=== PATIENT | male | born 1990 | race Caucasian/White ===

== ENCOUNTER 2021-10-29 22:35 | Emergency (ER) | payer SELFPAY ==
[2021-10-29 22:35] VITALS: PULSE 75; RESP 20; TEMP 36.8; BMI 36.9
[2021-10-29 22:46] VITALS: BP 123/77; PULSE 85; RESP 21; O2SAT 98
--- NOTE | 2021-10-29 23:07 | EKG12_ITS ---
Test Reason : DYSRHYTHMIA Blood Pressure : / mmHG Vent. Rate : 070 BPM Atrial Rate : 070 BPM P-R Int : 144 ms QRS Dur : 108 ms QT Int : 400 ms P-R-T Axes : 032 -19 009 degrees QTc Int : 432 ms Sinus rhythm with marked sinus arrhythmia Voltage criteria for left ventricular hypertrophy Abnormal ECG Confirmed by JARET BRO, SUKHDEEP ([id number]), offline editor KORINA SWIFT ([id number]) on 11/01/2021 10:46:12 A M Referred By: AMINTA Confirmed By:CHRIS RAYGOZA MD
[2021-10-29 23:16] LABS: Absolute Lymphocyte Count 0.99 X10^3/uL (0.83-4.51); Absolute Neutrophil Count 4.5 X10^3/uL (2.0-7.7); Basophil# 0.01 X10^3/uL; Basophil% 0.2 % (0-1); Eosinophil# 0.08 X10^3/uL; Eosinophils% 1.3 % (0-5); Hematocrit 39.5 % (40-54); Hemoglobin 13.2 g/dL (13.0-16.5); Lymphocyte # 0.99 X10^3/ul (0.83-4.51); Lymphocyte % 16.3 % (19-41); Mean Corp Hgb Conc 33.4 g/dL (32-36); Mean Corpuscular Hgb 28.4 pg (27.0-32.0); Mean Corpuscular Volume 84.9 fL (80-94); Mean Platelet Vol. 9.6 fl (6.2-12.0); Monocyte# 0.45 X10^3/uL; Monocyte% 7.4 % (0-10); NRBC Flagged by Analyzer 0 % (0-5); Neutrophil % 74.3 % (47-70); Platelet Count 264 K/mm3 (150-450); RBC Distribution Width CV 12.6 % (11.6-14.6); RBC Distribution Width SD 38.7 fl (35.1-43.9); Red Blood Count 4.65 M/mm3 (4.6-6.2); White Blood Count 6.1 K/mm3 (4.4-11.0)
[2021-10-29 23:45] VITALS: BP 124/88; BP 127/84; BP 132/92; PULSE 104; PULSE 88; PULSE 91
[2021-10-29 23:50] LABS: Anion Gap 5 (5-15); BUN 13 mg/dL (7-18); BUN/Creat Ratio 12.3 RATIO (10-20); Calcium,Total 8.7 mg/dL (8.5-10.1); Chloride 105 mmol/L (98-107); Creatinine, Serum 1.06 mg/dL (0.70-1.30); EST Glomerular Filtration Rate 87 mL/min (>60); Est Glom Filt Rate - Afr Amer 105 mL/min (>60); Estimated Creatinine Clearance 82.01 ml/min; Glucose 137 mg/dL (74-106); Magnesium 2.6 mg/dL (1.6-2.6); Potassium 3.5 mmol/L (3.5-5.1); Sodium Level 138 mmol/L (136-145); Troponin-I HS 5 pg/mL (3.0-78.0)
--- NOTE | 2021-10-29 23:51 | EX.ED.DYSGE1 ---
HPI History of Present Illness Chief Complaint: Syncope Narrative Narrative: Patient is a 31-year-old male who reports no significant medical or surgical history. He states he was at work this evening standing up for a meeting when he felt lightheaded dizzy became nauseated and then had a brief event of passing out. Patient states he awoke almost as soon as he hit the ground and he denies any chest pain or palpitations prior to the event. He states he feels normal at this time but with the passing out event occurring at work was sent to the hospital for evaluation [facility] Medical History no medical history no medical history Home Medications NK 10/29/21 [History Last Taken Unknown] Allergy/AdvReac Type Severity Reaction Status Date / Time Penicillins [PCN] AdvReac PT UNSURE Verified 10/29/21 22:39 OF REACTION Surgical History no surgical history Social History Smoking Status: Current every day smoker tobacco type: smokeless tobacco ROS ROS ED Constitutional Constitutional ED: Denies chills or fever(s) ENT ENT ED: Denies sore throat Cardiovascular Cardiovascular: Reports other Details: Positive syncope ; Denies chest pain, palpitations or racing heartbeat Respiratory/Chest Respiratory/Chest: Denies cough or dyspnea Gastrointestinal Gastrointestinal: Denies abdominal pain, diarrhea, nausea or vomiting Genitourinary Genitourinary ED: Denies dysuria Musculoskeletal Musculoskeletal: Denies myalgias Integumentary Denies rash Neurologic Neurologic: Denies headache(s) Hematologic/Lymphatic Hematologic/Lymphatic: Denies easy bleeding or easy bruising EXAM Physical Exam Const Vital Signs: 10/29/21 22:35 10/29/21 22:41 10/29/21 22:46 Temperature 98.2 F Temperature Source Oral Pulse Rate 75 85 Pulse Rate [Lying] Pulse Rate [Sitting] Pulse Rate [Standing] Respiratory Rate 20 H 21 H Respiratory Effort Normal Respiratory Pattern Normal Blood Pressure 123/77 H Blood Pressure [Lying] Blood Pressure [Sitting] Blood Pressure [Standing] Blood Pressure Mean 92 Blood Pressure Mean [Lying] Blood Pressure Mean [Sitting] Blood Pressure Mean [Standing] Pulse Ox 98 Oxygen Delivery Method Room Air 10/29/21 23:45 Temperature Temperature Source Pulse Rate Pulse Rate [Lying] 88 Pulse Rate [Sitting] 91 Pulse Rate [Standing] 104 H Respiratory Rate Respiratory Effort Respiratory Pattern Blood Pressure Blood Pressure [Lying] 127/84 H Blood Pressure [Sitting] 124/88 H Blood Pressure [Standing] 132/92 H Blood Pressure Mean Blood Pressure Mean [Lying] 98 Blood Pressure Mean [Sitting] 100 Blood Pressure Mean [Standing] 105 Pulse Ox Oxygen Delivery Method Positive well nourished and well developed General Appearance ED: well developed HEENT Reports moist mucous membranes Eyes PERRL and EOMs intact bilaterally General Eye ED: Negative for pale conjunctiva Neck supple Resp normal respiratory effort and clear to auscultation bilaterally Cardio regular rate and regular rhythm Rate: other Other Details: Radial pulses are plus 2 out of 4 bilaterally are equal and symmetric GI normal to inspection, nondistended, normoactive bowel sounds, non-tender, non-distended and no masses Auscultation: normoactive bowel sounds Palpation: soft Extremity normal to inspection Neuro oriented x3 and CN's II-XII intact bilaterally Sensorium / Orientation: alert Motor Exam: strength 5/5 throughout Psych mental status grossly normal Skin no rashes or lesions noted MDM MDM MDM Narrative Medical decision making narrative: Patient presented to the ER awake and alert with normal neurologic exam and stable vital. He reported a single episode of syncope while standing most consistent with orthostasis. Patient blood work was obtained which revealed no acute findings. Orthostatic vitals were technically negative but patient did have elevation in his heart rate by 10-15 beats with each position change indicating he did have mild dehydration. Therefore he was given a liter of fluid and on reevaluation reports feeling better and is resting comfortably. 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 Therefore with a single event of syncope as well as negative work-up there is no need for inpatient treatment or further investigation and patient can be discharged and follow-up on an outpatient basis Lab Data Attestation: I reviewed the patient's lab results. Labs: Laboratory Results - last 24 hr 10/29/21 10/29/21 22:55 22:55 WBC 6.1 RBC 4.65 Hgb 13.2 Hct 39.5 L MCV 84.9 MCH 28.4 MCHC 33.4 RDW Std Deviation 38.7 RDW Coeff of Neida 12.6 Plt Count 264 MPV 9.6 Immature Gran % (Auto) 0.500 Neut % (Auto) 74.3 H Lymph % (Auto) 16.3 L Dickinson % (Auto) 7.4 Eos % (Auto) 1.3 Baso % (Auto) 0.2 Absolute Neuts (auto) 4.5 Absolute Lymphs (auto) 0.99 Nucleated RBC % 0 Sodium 138 Potassium 3.5 Chloride 105 Carbon Dioxide 28.0 Anion Gap 5 BUN 13 Creatinine 1.06 Estim Creat Clear Calc 82.01 Est GFR (MDRD) Af Amer 105 Est GFR (MDRD) Non-Af 87 BUN/Creatinine Ratio 12.3 Glucose 137 H Calcium 8.7 Magnesium 2.6 Troponin I High Sens 5 Discharge Plan Triage Chief Complaint: Syncope ED Provider: Jj Trevino Dx/Rx/DC Orders Clinical Impression: Syncope Instructions: Diagnosing Syncope, ED Hypotension, Orthostatic Prescriptions: No Action NK RF: 0 Stand Alone Forms: ED Work / School Excuse Primary Care Provider: Care Physician,No Primary Referrals: González Villarreal DO [STAFF PHYSICIAN] - 1 Week if not improving Care Physician,No Primary [Primary Care Provider] - Disposition Disposition: Home, Self Care
[2021-10-30] MEDS: 0.9% Normal Saline 1,000 ML 999 ML IV (00:06)
[2021-10-30 00:52] VITALS: BP 110/76; PULSE 89; RESP 16; O2SAT 98
== END 2021-10-30 00:52 | disposition home or self-care (01) ==
PROVIDERS: Emergency Provider Emergency Medicine; Visit Provider Emergency Medicine
DX: R55 Syncope and collapse (principal); F17.220 Nicotine dependence, chewing tobacco, uncomplicated
CPT/HCPCS: 80048; 83735; 84484; 85025; 93005; 99285; J7030; A4216